=== PATIENT | female | born 1995 | race Caucasian/White ===

== ENCOUNTER 2018-06-15 19:33 | Emergency (ER) | payer MEDICAID ==
[~2018-06-15] VITALS: Ht 157.5 cm; Wt 68.1 kg
[2018-06-15 20:07] VITALS: Ht 157.5 cm; Wt 68.1 kg
[2018-06-16] MEDS ORDERED: ACETAMINOPHEN 500 MG TAB PO STA (03:32)
--- NOTE | 2018-06-16 03:41 | ERD ---
ER Documentation Chief Complaint Chief Complaint SENT BY CLINIC FOR POSSIBLE MISCARRIAGE; NO FETUS SEEN ON US HPI This is a 23-year-old female who presents emergency department, was sent here by clinic for possible miscarriage. Patient stated that they informed her that fetus is not seen on ultrasound. LMP: 02/11/2018. SAUL: 11/18/2017. SAUL on ultrasound: 02/02/2019. Denies headache, head injury, loss of consciousness, dizziness, neck pain, neck stiffness, throat pain, difficulty swallowing, difficulty breathing lying flat, shoulder pain, chest pain, back pain, abdominal pain, nausea, vomiting, constipation, diarrhea, urinary symptoms, loss of bowel and bladder control, trauma, injury, falls, difficulty walking due to pain, numbness or tingling sensation, calf pain, recent travel, recent major surgery in the last 3 weeks, calf pain, recent long travel, recent exposure to any illness, recent antibiotic use in the last 3 months, fever, chills, seizures. Past medical history: Surgical history: Social: Denies smoking, use of alcoholic beverages, use of illegal drugs. ROS All systems reviewed and are negative except as per history of present illness. Medications Home Meds Active Scripts Ferrous Sulfate* (Ferrous Sulfate*) 325 Mg Tabec, 325 MG PO DAILY, #30 TAB Prov:UTE SORTO 06/16/18 Vit No.124/Iron/FA ( Vitamin Tablet) 1 Each Tablet, 1 EACH PO DAILY, #30 TAB Prov:UTE SORTO F 06/16/18 Acetaminophen* (Tylophen*) 500 Mg Capsule, 1 CAP PO Q6H PRN for PAIN AND OR ELEVATED TEMP, #20 CAP Prov:UTE SORTO 06/16/18 Allergies Allergies: Coded Allergies: No Known Allergy (Unverified , 06/16/18) PMhx/Soc Medical and Surgical Hx: pt denies Medical Hx History of Surgery: Yes (cyst removal on left breast) Hx Alcohol Use: No Hx Substance Use: No Hx Tobacco Use: No Smoking Status: Never smoker Physical Exam Vitals Physical Exam Const: No acute distress Head: Atraumatic Eyes: Normal Conjunctiva ENT: Normal External Ears, Nose and Mouth. Neck: Full range of motion. No meningismus. Resp: Clear to auscultation bilaterally Cardio: Regular rate and rhythm, no murmurs Abd: Soft, non tender, non distended. Normal bowel sounds. Negative Coronel sign but negative Charlotte sign (heel jar test). Negative psoas sign. Negative Rovsing sign. Skin: No petechiae or rashes. Color appears normal for ethnicity. Back: No midline or flank tenderness Ext: No cyanosis, or edema Neur: Awake and alert. No neurological deficits. Psych: Normal Mood and Affect Results 24 hrs Laboratory Tests Test 06/16/18 03:49 White Blood Count 8.2 10^3/ul Red Blood Count 4.00 10^6/ul Hemoglobin 9.7 g/dl Hematocrit 30.8 % Mean Corpuscular Volume 77.0 fl Mean Corpuscular Hemoglobin 24.3 pg Mean Corpuscular Hemoglobin Concent 31.5 g/dl Red Cell Distribution Width 19.3 % Platelet Count 292 10^3/UL Mean Platelet Volume 10.2 fl Immature Granulocytes % 0.200 % Neutrophils % 57.7 % Lymphocytes % 31.9 % Monocytes % 8.9 % Eosinophils % 0.7 % Basophils % 0.6 % Nucleated Red Blood Cells % 0.0 /100WBC Immature Granulocytes # 0.020 10^3/ul Neutrophils # 4.7 10^3/ul Lymphocytes # 2.6 10^3/ul Monocytes # 0.7 10^3/ul Eosinophils # 0.1 10^3/ul Basophils # 0.1 10^3/ul Nucleated Red Blood Cells # 0.0 10^3/ul Urine Color YELLOW Urine Clarity SLIGHTLY CLOUDY Urine pH 6.0 Urine Specific [place] 1.024 Urine Ketones NEGATIVE mg/dL Urine Nitrite NEGATIVE mg/dL Urine Bilirubin NEGATIVE mg/dL Urine Urobilinogen NEGATIVE mg/dL Urine Leukocyte Esterase NEGATIVE Daniel/ul Urine Microscopic RBC 2 /HPF Urine Microscopic WBC 2 /HPF Urine Squamous Epithelial Cells FEW /HPF Urine Mucus FEW /HPF Urine Hemoglobin NEGATIVE mg/dL Urine Glucose NEGATIVE mg/dL Urine Total Protein NEGATIVE mg/dl Sodium Level 141 mmol/L Potassium Level 3.9 mmol/L Chloride Level 102 mmol/L Carbon Dioxide Level 24 mmol/L Anion Gap 15 Blood Urea Nitrogen 12 mg/dl Creatinine 0.52 mg/dl Est Glomerular Filtrat Rate mL/min > 60 mL/min Glucose Level 101 mg/dl Calcium Level 10.0 mg/dl Total Bilirubin 0.3 mg/dl Direct Bilirubin 0.00 mg/dl Indirect Bilirubin 0.3 mg/dl Aspartate Amino Transf (AST/SGOT) 21 IU/L Alanine Aminotransferase (ALT/SGPT) 15 IU/L Alkaline Phosphatase 76 IU/L Total Protein 8.1 g/dl Albumin 4.8 g/dl Globulin 3.30 g/dl Albumin/Globulin Ratio 1.45 Lipase 85 U/L Beta HCG, Quantitative 01013.0 mIU/ml Current Medications Medications Dose Sig/Sergio Start Time Status Last (Trade) Ordered Route PRN Stop Time Admin Dose Reason Admin 500 mg ONCE STAT 06/16/18 DC Acetaminophen PO 03:32 (Tylenol 06/16/18 03:36 Tab) Sodium 1,000 ml @ Q1H ONCE 06/16/18 DC 06/16/18 Chloride 1,000 mls/hr IV 04:00 03:58 06/16/18 04:59 Procedures/MDM Patient brought a paper and that there is an beta-hCG results including: Beta- hCG on 05/31/2018: 52515; beta-hCG [place] 06/13/2018 [place] 02493. Diagnostic tests: Urinalysis: Reviewed. Culture urine: Sent. Beta-hCG quantitative: 11194. Type and Rh: O+. Blood works: Reviewed. OB ultrasound: Intrauterine gestational sac without discrete pole or yolk sac identified. Correlation with serial beta HCG and close continued interval pelvic ultrasound follow-up is recommended. Treatment: Tylenol p.o. Re-evaluation: Denies pain. Denies vaginal bleeding. No signs of hemorrhaging. Differential diagnosis I have low suspicion for sepsis, hemorrhaging. Final diagnosis: Incomplete miscarriage/. Prescription: Tylenol. vitamins. Follow-up with [facility] in the next 24-48 hours. Come back here in the emergency department for any new symptoms or any worsening symptoms. All questions and concerns were answered. Patient and family members verbalized understanding and agreed with plan of care. Hemodynamically stable on discharge. Departure Diagnosis: Primary Impression: Vaginal bleeding in patient at less than 20 weeks gestation Additional Impressions: Incomplete Incomplete miscarriage Condition: Stable Additional Instructions: Follow-up with [facility] in the next 24-48 hours. Come back here in the emergency department for any new symptoms or any worsening symptoms. UTE SORTO Jun 16, 2018 03:41
[2018-06-16] MEDS ORDERED: SOD CHLORIDE 0.9% 1,000 ML IV ONE (04:00)
[2018-06-16] MEDS ORDERED: ACET500C5 PO (06:18)
[2018-06-16] MEDS ORDERED: PREN-93 PO (06:18)
[2018-06-16] MEDS ORDERED: FER325 PO (06:19)
[2018-06-16 06:31] VITALS: BP 102/62; PULSE 91; RESP 16
== END 2018-06-16 06:31 | disposition home or self-care (01) ==
LOC: FTE 19:33
DX: O03.4 Incomplete spontaneous abortion without complication (principal); R10.2 Pelvic and perineal pain
CPT/HCPCS: 76801; 76817; 80053; 81001; 83690; 84702; 85025; 86900; 86901; 87086; J7030; Z7610; 81003